=== PATIENT | male | born 1980 | race Caucasian/White ===

== ENCOUNTER 2017-01-28 14:46 | Emergency (ER) | payer BC ==
--- NOTE | 2017-01-28 15:00 | EDM.PDOC ---
ED HPI GENERAL MEDICAL PROBLEM - General Chief Complaint: Chest Pain Stated Complaint: CHEST PAIN Time Seen by Provider: 01/28/17 14:55 - History of Present Illness INITIAL COMMENTS - FREE TEXT/NARRATIVE: HISTORY AND PHYSICAL: History of present illness: Patient 36-year-old white male with history of pulmonary embolus and was on [place] who was discharged from [facility] yesterday. He states the pain in his right shoulder and chest is worse he denies nausea vomiting palpitations fever chills Review of systems: As per history of present illness and below otherwise all systems reviewed and negative. Past medical history: As per history of present illness and as reviewed below otherwise noncontributory. Surgical history: As per history of present illness and as reviewed below otherwise noncontributory. Social history: No reported history of drug or alcohol abuse. Family history: As per history of present illness and as reviewed below otherwise noncontributory. Physical exam: HEENT: Atraumatic, normocephalic, pupils reactive, negative for conjunctival pallor or scleral icterus, mucous membranes moist, throat clear, neck supple, nontender, trachea midline. Lungs: Clear to auscultation, breath sounds equal bilaterally, chest nontender. Heart: S1S2, regular, negative for clicks, rubs, or JVD. Abdomen: Soft, nondistended, nontender. Negative for masses or hepatosplenomegaly. Negative for costovertebral tenderness. Pelvis: Stable nontender. Genitourinary: Deferred. Rectal: Deferred. Extremities: Atraumatic, negative for cords or calf pain. Neurovascular unremarkable. Neuro: Awake, alert, oriented. Cranial nerves II through XII unremarkable. Cerebellum unremarkable. Motor and sensory unremarkable throughout. Exam nonfocal. Diagnostics: CBC CMP troponin PT/INR chest x-ray EKG Therapeutics: IV O2 monitor Impression: #1 history of pulmonary embolism #2 chest pain Definitive disposition and diagnosis as appropriate pending reevaluation and review of above. Chest Pain Score (Numeric/FACES): 8 - Related Data Allergies Allergy/AdvReac Type Severity Reaction Status Date / Time morphine sulfate Allergy Fainting Verified 01/28/17 14:48 [From MS Contin] Home Meds: Home Meds Apixaban [Eliquis] 10 mg PO BID 01/28/17 [History] Social & Family History - Tobacco Use Years of Tobacco use: 18 Second Hand Smoke Exposure: No - Alcohol Use Days Per Week of Alcohol Use: 2 Number of Drinks Per Day: 2 Total Drinks Per Week: 4 - Recreational Drug Use Recreational Drug Use: No ED ROS GENERAL - Review of Systems Review Of Systems: ROS reveals no pertinent complaints other than HPI. ED EXAM, GENERAL - Physical Exam Exam: See Below (See dictation) Course - Vital Signs Text/Narrative:: I had lengthier discussion with patient in which patient acknowledged medical noncompliance and stopping his anticoagulation prior he was seen at [place] in the emergency department subsequent to transfer to [place] he was worked up there treated and opted for discharge at that point he was subsequently seen a second time in [place] today and discharged by his choice and reported to be on his way to [place] for reevaluation at this time he has no interest in transfer to [place] or admission but does agree to diagnostics in the emergency department Last Recorded V/S: Last Vital Signs Temp 36.3 C 01/28/17 14:52 Pulse 99 01/28/17 14:52 Resp 20 01/28/17 14:52 BP 153/113 H 01/28/17 14:52 Pulse Ox 100 01/28/17 14:52 - Orders/Labs/Meds Orders: Active Orders 24 hr Category Date Time Status Cardiac Monitoring [RC] . DIRECTED Care 01/28/17 15:06 Active EKG Documentation Completion [RC] STAT Care 01/28/17 15:06 Active Oxygen Therapy, ED [RC] ASDIRECTED Care 01/28/17 15:06 Active Chest 1V Frontal [CR] Stat Exams 01/28/17 15:07 Ordered COMPREHENSIVE METABOLIC PN,CMP [CHEM] Stat Lab 01/28/17 15:05 Results DRUG SCREEN, URINE [URCHEM] Stat Lab 01/28/17 15:07 Uncollected TROPONIN I [CHEM] Stat Lab 01/28/17 15:05 Results Sodium Chloride 0.9% [Saline Flush] Med 01/28/17 15:06 Active 10 ml FLUSH ASDIRECTED PRN Sodium Chloride 0.9% [Saline Flush] Med 01/28/17 15:06 Active 2.5 ml FLUSH ASDIRECTED PRN Saline Lock Insert [OM.PC] Stat Oth 01/28/17 15:06 Ordered Medication Orders Sodium Chloride (Saline Flush) 10 ml FLUSH ASDIRECTED PRN PRN Reason: Keep Vein Open Sodium Chloride (Saline Flush) 2.5 ml FLUSH ASDIRECTED PRN PRN Reason: Keep Vein Open Labs: Laboratory Tests 01/28/17 01/28/17 01/28/17 Range/Units 15:05 15:05 15:05 WBC 6.22 (4.0-11.0) K/uL RBC 4.73 (4.50-5.90) M/uL Hgb 16.3 (13.0-17.0) g/dL Hct 46.3 (38.0-50.0) % MCV 97.9 (80.0-98.0) fL MCH 34.5 H (27.0-32.0) pg MCHC 35.2 (31.0-37.0) g/dL RDW Std Deviation 47.3 (28.0-62.0) fl RDW Coeff of Alfredo 13 (11.0-15.0) % Plt Count 195 (150-400) K/uL MPV 9.10 (7.40-12.00) fL Neut % (Auto) 57.4 (48.0-80.0) % Lymph % (Auto) 29.6 (16.0-40.0) % [place] % (Auto) 10.9 (0.0-15.0) % Eos % (Auto) 1.9 (0.0-7.0) % Baso % (Auto) 0.2 (0.0-1.5) % Neut # (Auto) 3.6 (1.4-5.7) K/uL Lymph # (Auto) 1.8 (0.6-2.4) K/uL [place] # (Auto) 0.7 (0.0-0.8) K/uL Eos # (Auto) 0.1 (0.0-0.7) K/uL Baso # (Auto) 0.0 (0.0-0.1) K/uL Nucleated RBC % 0.0 /100WBC Nucleated RBCs # 0 K/uL INR 0.98 (0.86-1.11) Troponin I < 0.10 (0.0-0.29) NG/ML B-Natriuretic Peptide (<100) PG/ML 01/28/17 Range/Units 15:05 WBC (4.0-11.0) K/uL RBC (4.50-5.90) M/uL Hgb (13.0-17.0) g/dL Hct (38.0-50.0) % MCV (80.0-98.0) fL MCH (27.0-32.0) pg MCHC (31.0-37.0) g/dL RDW Std Deviation (28.0-62.0) fl RDW Coeff of Alfredo (11.0-15.0) % Plt Count (150-400) K/uL MPV (7.40-12.00) fL Neut % (Auto) (48.0-80.0) % Lymph % (Auto) (16.0-40.0) % [place] % (Auto) (0.0-15.0) % Eos % (Auto) (0.0-7.0) % Baso % (Auto) (0.0-1.5) % Neut # (Auto) (1.4-5.7) K/uL Lymph # (Auto) (0.6-2.4) K/uL [place] # (Auto) (0.0-0.8) K/uL Eos # (Auto) (0.0-0.7) K/uL Baso # (Auto) (0.0-0.1) K/uL Nucleated RBC % /100WBC Nucleated RBCs # K/uL INR (0.86-1.11) Troponin I (0.0-0.29) NG/ML B-Natriuretic Peptide 26 (<100) PG/ML Meds: Medications Generic Name Dose Route Start Last Admin Trade Name Freq PRN Reason Stop Dose Admin Sodium Chloride 10 ml 01/28/17 15:06 Saline Flush FLUSH ASDIRECTED PRN Keep Vein Open Sodium Chloride 2.5 ml 01/28/17 15:06 Saline Flush FLUSH ASDIRECTED PRN Keep Vein Open Departure - Departure Time of Disposition: 15:31 Disposition: Home, Self-Care 01 Condition: Good Clinical Impression: Coagulopathy, History of pulmonary embolism, Medical non-compliance - Discharge Information Forms: ED Department Discharge Additional Instructions: The following information is given to patients seen in the emergency department who are being discharged to home. This information is to outline your options for follow-up care. We provide all patients seen in our emergency department with a follow-up referral. The need for follow-up, as well as the timing and circumstances, are variable depending upon the specifics of your emergency department visit. If you don't have a primary care physician on staff, we will provide you with a referral. We always advise you to contact your personal physician following an emergency department visit to inform them of the circumstance of the visit and for follow-up with them and/or the need for any referrals to a consulting specialist. The emergency department will also refer you to a specialist when appropriate. This referral assures that you have the opportunity for followup care with a specialist. All of these measure are taken in an effort to provide you with optimal care, which includes your followup. Under all circumstances we always encourage you to contact your private physician who remains a resource for coordinating your care. When calling for followup care, please make the office aware that this follow-up is from your recent emergency room visit. If for any reason you are refused follow-up, please contact the [facility] emergency department at and asked to speak to the emergency department charge nurse. [facility] [address] [place] [address] Follow-up primary medical doctor and/or clinic about 1-2 days continue anticoagulants return as needed as discussed - My Orders Last 24 Hours: My Active Orders 01/28/17 15:05 COMPREHENSIVE METABOLIC PN,CMP [CHEM] Stat TROPONIN I [CHEM] Stat 01/28/17 15:06 Cardiac Monitoring [RC] . DIRECTED EKG Documentation Completion [RC] STAT Oxygen Therapy, ED [RC] ASDIRECTED Sodium Chloride 0.9% [Saline Flush] 10 ml FLUSH ASDIRECTED PRN Sodium Chloride 0.9% [Saline Flush] 2.5 ml FLUSH ASDIRECTED PRN Saline Lock Insert [OM.PC] Stat 01/28/17 15:07 Chest 1V Frontal [CR] Stat DRUG SCREEN, URINE [URCHEM] Stat - Assessment/Plan Last 24 Hours: My Active Orders 01/28/17 15:05 COMPREHENSIVE METABOLIC PN,CMP [CHEM] Stat TROPONIN I [CHEM] Stat 01/28/17 15:06 Cardiac Monitoring [RC] . DIRECTED EKG Documentation Completion [RC] STAT Oxygen Therapy, ED [RC] ASDIRECTED Sodium Chloride 0.9% [Saline Flush] 10 ml FLUSH ASDIRECTED PRN Sodium Chloride 0.9% [Saline Flush] 2.5 ml FLUSH ASDIRECTED PRN Saline Lock Insert [OM.PC] Stat 01/28/17 15:07 Chest 1V Frontal [CR] Stat DRUG SCREEN, URINE [URCHEM] Stat
[2017-01-28] MEDS ORDERED: Sodium Chloride 0.9% 2.5 ML Syringe FLUSH PRN (15:06)
[2017-01-28] MEDS ORDERED: Sodium Chloride 0.9% 10 ML Syringe FLUSH PRN (15:06)
[2017-01-28 15:37] LABS: CHLORIDE,CL 108 mmol/L (98-110); SODIUM,NA 142 mmol/L (136-146)
--- NOTE | 2017-01-30 13:38 | CR ---
EXAM DATE: 01/28/17 PATIENT'S AGE: 36 Patient: AYLIN CASTRO Facility: [place], [place] Site . Site : [id number] Study: XRay Chest [id number] 3:46:45 PM Ordering Physician: Lolis Mandujano Final Report: HISTORY: Chest pain and shortness of breath. Findings: The lungs are normally expanded and clear. No pleural effusion or pneumothorax is seen. Cardiac silhouette size is within normal limits. Dictated by Veto Ballard MD @ Jan 28 2017 3:50PM (Electronic Signature) Report Signed by Proxy. [facility]
== END 2017-01-28 16:24 | disposition home or self-care (01) ==
LOC: MW.ED 14:46
DX: R07.9 Chest pain, unspecified (principal); D68.9 Coagulation defect, unspecified; Z88.5 Allergy status to narcotic agent; Z86.711 Personal history of pulmonary embolism; Z91.14 Patient's other noncompliance with medication regimen
CPT/HCPCS: 71010; 71010-26; 80053; 83880; 84484; 85025; 85610; 93005; 99283; 99285-25